=== PATIENT | female | born 1930 | race Caucasian/White ===

== ENCOUNTER 2017-01-09 10:07 | Emergency (ER) | payer MEDICARE, BC ==
[~2017-01-09] VITALS: Ht 154.9 cm; Wt 66.2 kg
--- NOTE | ~2017-01-09 | CT101 ---
[facility] A Service [facility] RADIOLOGY TEXT RESULTS PATIENT: JELLY SALAZAR LOCATION: SED : 30 UNIT #: [id number] AGE: [address]: Mya Betancourt MD SEX: F ORDER DR: [id number] [address] [address] [id number] E MR#: [id number] Acc #: [id number] NAME: JELLY SALAZAR : 1930 SEX: F STUDY DATE/TIME: 01/09/2017 11:31 UNIT: SED ROOM: STUDY DESCRIPTION: CT Maxillofacial Area Wo Cont Attending Physician: Mya Betancourt M.D. Ordering Physician: Mya Betancourt M.D. Primary Care Physician: Peter Kang M.D. MEDICAL IMAGING REPORT This report is preliminary unless electronic signature is present. EXAM CT maxillofacial bones HISTORY Tripped and fell this morning, hit face and forehead on ground, headaches, laceration, bruising to nose. FINDINGS Axial images performed through the brain. This CT exam was performed with one or more of the following radiation dose reduction techniques: automatic control, adjustment of mA and/or kV according to patient size, and iterative reconstruction. There is a deformity of the anterior nasal bone suggesting a nondisplaced nasal bone fracture. Sinuses, orbits unremarkable. Mandible appears intact. Arthritic changes are seen in the temporomandibular joints left greater than right. Remaining dentition in satisfactory repair. Orbital and facial soft tissues unremarkable. Arthritic changes seen within the visualized cervical spine. IMPRESSION Minimally-displaced nasal bone fracture. Dictated by... Fatou Amin M.D. THIS IS AN ELECTRONICALLY VERIFIED REPORT Fatou Amin M.D. at 01/09/2017 4:01 PM BEL/petros TD: 01/09/2017 14:13 JOB #: [id number] MEDICAL IMAGING REPORT [facility] A Service of [facility] RADIOLOGY TEXT RESULTS PATIENT: JELLY SALAZAR LOCATION: [facility] #: [id number] : 30 UNIT #: [id number] AGE: [address]: Mya Betancourt MD SEX: F ORDER DR: Page 1 of 1
--- NOTE | ~2017-01-09 | CR170 ---
[facility]. [facility] A Service of [facility] RADIOLOGY TEXT RESULTS PATIENT: JELLY SALAZAR LOCATION: SED : 30 UNIT #: [id number] AGE: [address]: Mya Betancourt MD SEX: F ORDER DR: [id number] [place] [id number] E MR#: [id number] Acc #: [id number] NAME: JELLY SALAZAR : 1930 SEX: F STUDY DATE/TIME: 01/09/2017 11:04 UNIT: SED ROOM: STUDY DESCRIPTION: CR Knee 2 Views Rt Attending Physician: Mya Betancourt M.D. Ordering Physician: Mya Betancourt M.D. Primary Care Physician: Peter Kang M.D. MEDICAL IMAGING REPORT This report is preliminary unless electronic signature is present. EXAM Right knee 01/09 INDICATIONS Pain, swelling and bruising after a fall this morning. FINDINGS Two views of the right knee were obtained. 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 Chondrocalcinosis is present in the medial and lateral compartments. No acute fracture is seen, and there is no joint effusion. IMPRESSION Osteoarthritis and chondrocalcinosis. No acute findings in the knee. Dictated by... Jay Ramos Jr., M.D. THIS IS AN ELECTRONICALLY VERIFIED REPORT Jay Ramos Jr., M.D. at 01/09/2017 4:50 PM ISIDORO/petros TD: 01/09/2017 13:11 JOB #: [id number] MEDICAL IMAGING REPORT Page 1 of 1
--- NOTE | ~2017-01-09 | CT71 ---
[facility] A Service of [facility] RADIOLOGY TEXT RESULTS PATIENT: JELLY SALAZAR LOCATION: SED : 30 UNIT #: [id number] AGE: [address]: Mya Betancourt MD SEX: F ORDER DR: [id number] [place] [address] [id number] E MR#: [id number] Acc #: [id number] NAME: JELLY SALAZAR : 1930 SEX: F STUDY DATE/TIME: 01/09/2017 11:27 UNIT: SED ROOM: STUDY DESCRIPTION: CT Head Wo Contrast Attending Physician: Mya Betancourt M.D. Ordering Physician: Mya Betancourt M.D. Primary Care Physician: Peter Kang M.D. MEDICAL IMAGING REPORT This report is preliminary unless electronic signature is present. EXAM Noncontrast head CT HISTORY Tripped and fell this morning, hit face and forehead on ground, headaches, bruising to nose. FINDINGS Axial noncontrast imaging of the brain was performed. This CT examination was performed with one or more of the following radiation dose reduction techniques: automatic exposure control, adjustment of mA and/or kV according to patient size, and iterative reconstruction. Generalized atrophy. No mass or mass effect or hemorrhage. Intracranial vascular calcifications. Bony calvaria, skull base, mastoids and sinuses unremarkable. IMPRESSION 1. No acute intracranial abnormality identified. Mild generalized atrophy in keeping with age. 2. Not mentioned above, there is decreased attenuation in the left occipital lobe most likely represents the sequela of old vascular insult. Dictated by... Fatou Amin M.D. THIS IS AN ELECTRONICALLY VERIFIED REPORT Fatou Amin M.D. at 01/09/2017 4:01 PM BEL/carmen TD: 01/09/2017 14:03 [facility] A Service [facility] RADIOLOGY TEXT RESULTS PATIENT: JELLY SALAZAR LOCATION: SED : 30 UNIT #: [id number] AGE: [address]: Mya Betancourt MD SEX: F ORDER DR: JOB #: [id number] MEDICAL IMAGING REPORT Page 1 of 1
[2017-01-09] MEDS ORDERED: CARTIA XT120 MG PO (10:10)
[2017-01-09] MEDS ORDERED: ASPIRIN81 MG PO (10:10)
[2017-01-09] MEDS ORDERED: K-LOR HOSPITAL20 ME1 PO (10:10)
[2017-01-09] MEDS ORDERED: LASIX20 MG PO (10:11)
[2017-01-09] MEDS ORDERED: LIPITOR80 MG PO (10:11)
[2017-01-09] MEDS ORDERED: ZYLOPRIM100 MG PO (10:11)
[2017-01-09] MEDS ORDERED: LOPRESSOR PO (10:12)
[2017-01-09] MEDS ORDERED: BIOTIN5000 MCG (10:12)
[2017-01-09] MEDS ORDERED: ELIQUIS2.5 MG PO (10:13)
[2017-01-09] MEDS ORDERED: METHOTREXATE2.5 MG PO (10:14)
[2017-01-09] MEDS ORDERED: FOLIC ACID1 MG PO (10:14)
[2017-01-09] MEDS ORDERED: MILLIPRED5 MG PO (10:14)
[2017-01-09] MEDS ORDERED: LEVEMIR100 UNITS/ (10:15)
== END 2017-01-09 12:35 | disposition home or self-care (01) ==
LOC: SED 10:07
DX: S02.2XXA Fracture of nasal bones, initial encounter for closed fracture (principal); S01.81XA Laceration without foreign body of other part of head, initial encounter; S56.912A Strain of unspecified muscles, fascia and tendons at forearm level, left arm, initial encounter; Z23 Encounter for immunization; W01.0XXA Fall on same level from slipping, tripping and stumbling without subsequent striking against object, initial encounter; Y92.009 Unspecified place in unspecified non-institutional (private) residence as the place of occurrence of the external cause
CPT/HCPCS: 70450; 70486; 73560; 90471; 90715; 99284

== ENCOUNTER → 2017-02-17 | Outpatient (CLI) | payer MEDICARE, BC ==
[~2017-02-17] MED LIST: ASPIRIN81 MG PO; BIOTIN5000 MCG; CARTIA XT120 MG PO; ELIQUIS2.5 MG PO; FOLIC ACID1 MG PO; K-LOR HOSPITAL20 ME1 PO; LASIX20 MG PO; LEVEMIR100 UNITS/; LIPITOR80 MG PO; LOPRESSOR PO; METHOTREXATE2.5 MG PO; MILLIPRED5 MG PO; ZYLOPRIM100 MG PO
--- NOTE | ~2017-02-17 | CR63 ---
[facility] A Service of [facility] RADIOLOGY TEXT RESULTS PATIENT: JELLY SALAZAR LOCATION: [facility] : 30 UNIT #: [id number] AGE: [address]: Sary Coyle MD SEX: F ORDER DR: [id number] [address] [address] [id number] O MR#: [id number] Acc #: [id number] NAME: JELLY SALAZAR. : 1930 SEX: F STUDY DATE/TIME: 02/17/2017 12:49 UNIT: [facility] ROOM: STUDY DESCRIPTION: CR Chest 2 View Attending Physician: Sary Coyle M.D. Referring Physician: Sary Coyle M.D. Ordering Physician: Sary Coyle M.D. Primary Care Physician: Peter Kang M.D. MEDICAL IMAGING REPORT This report is preliminary unless electronic signature is present. EXAM PA and lateral chest. Date: 02/17/2017. 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 Patient states no current complaints. History of coronary bypass graft. Previous history of smoking. COMPARISON PA lateral chest radiograph 08/12/2016. FINDINGS Emphysematous changes are present. Chronic-appearing interstitial thickening is present in the lung bases. No acute airspace disease. No cavitary nodules identified. No adenopathy is identified. Stable cardiac enlargement with CABG changes. Advanced degenerative changes of the right shoulder. Marginal osteophyte formation in the thoracic spine. IMPRESSION 1. Emphysematous changes in the lungs with chronic interstitial thickening or scarring in the bases. 2. No acute chest findings. 3. Stable mild cardiac enlargement, CABG. Dictated by... Sandi Loya M.D. THIS IS AN ELECTRONICALLY VERIFIED REPORT Sandi Loya M.D. at 02/18/2017 5:03 PM LLH/lenore [facility] A Service of [facility] RADIOLOGY TEXT RESULTS PATIENT: JELLY SALAZAR LOCATION: [facility] : 30 UNIT #: [id number] AGE: [address]: Sary Coyle MD SEX: F ORDER DR: TD: 02/18/2017 09:56 JOB #: [id number] MEDICAL IMAGING REPORT Page 1 of 1
== END | disposition home or self-care (01) ==
LOC: SRAD 12:34
DX: A15.9 Respiratory tuberculosis unspecified (principal); I51.7 Cardiomegaly; Z95.1 Presence of aortocoronary bypass graft
CPT/HCPCS: 71020